=== PATIENT | male | born 1935 | race Caucasian/White ===

== ENCOUNTER 2017-06-10 14:38 | Outpatient (CLI) | payer MEDICARE ==
[2017-06-10 15:55] LABS: Mean Corpuscular HGB CONC 33.7 g/dL (32.0-36.0); Mean Corpuscular Hemoglobin 31.7 pg (27.0-31.0); Mean Corpuscular Volume 94.3 fl (80.0-94.0); Platelet Count 261 thou/uL (130-400); RBC Distribution Width 11.3 % (11.5-14.5); Red Blood Cell (RBC) Count 4.11 mill/uL (4.70-6.10); White Blood Cell (WBC) Count 7.9 thou/uL (4.8-10.8)
[2017-06-10 16:22] LABS: Anion Gap 12 mmol/L (10-20); BUN (Urea Nitrogen) 35 mg/dL (8.4-25.7); Calc. Creatinine Clearance 0 mL/min (70-130); Calcium 10.4 mg/dL (7.8-10.44); Carbon Dioxide 26 mmol/L (23-31); Chloride 103 mmol/L (98-107); Estimated GFR-MDRD 55; Glucose 96 mg/dL (83-110); Potassium 4.1 mmol/L (3.5-5.1); Sodium 137 mmol/L (136-145)
== END 2017-06-10 14:39 | disposition home or self-care (01) ==
LOC: LABBT 14:38
PROVIDERS: ATTEND Internal Medicine Cardiovascular Disease
DX: Z01.812 Encounter for preprocedural laboratory examination (principal); I20.0 Unstable angina
CPT/HCPCS: 80048; 85027

== ENCOUNTER 2017-06-12 06:58 | Inpatient (IN) | payer MEDICARE ==
[2017-06-12] MEDS ORDERED: Iopamidol 370 76% 100 ML VIAL ONE (06:59)
[2017-06-12] MEDS ORDERED: Lidocaine 1% (PF) 30 ML VIAL ONE (07:17)
[2017-06-12] MEDS ORDERED: Diazepam 5 MG TAB ONE (07:40)
[2017-06-12 07:43] LABS: Prothrombin Time 13.6 SEC (12.0-14.7)
[2017-06-12] MEDS ORDERED: Fentanyl 100 MCG/2 ML VIAL ONE (08:26)
[2017-06-12] MEDS ORDERED: Midazolam HCl 2 mg/2 ml Vial ONE ×3 (08:26→11:15)
[2017-06-12] MEDS ORDERED: Protamine Sulfate 250 MG/25 ML VIAL ONE (08:32)
[2017-06-12] MEDS ORDERED: Calcium Chloride 1 GM/10 ML Abboject SYRINGE ONE (08:32)
[2017-06-12] MEDS ORDERED: Sodium Bicarb 50 MEQ/50 ML VIAL ONE (08:32)
[2017-06-12] MEDS ORDERED: Papaverine 60 MG/2 ML VIAL ONE (08:32)
[2017-06-12] MEDS ORDERED: Cardioplegic Soln 1,000 ML BAG ONE (08:32)
[2017-06-12] MEDS ORDERED: Thrombin 5000 UNITS/5 ML VIAL ONE (08:32)
[2017-06-12] MEDS ORDERED: Heparin 30,000 units/30 ml VIAL ONE (08:32)
[2017-06-12] MEDS ORDERED: Aminocaproic Acid 5 GM/20 ML VIAL ONE (08:32)
[2017-06-12] MEDS ORDERED: PHENYLEPHRINE-NS 100 MCG/ML 10 ML SYRINGE ONE ×2 (08:32→14:58)
[2017-06-12] MEDS ORDERED: PROPOFOL 200 MG/20 ML VIAL ONE (08:32)
[2017-06-12] MEDS ORDERED: Lidocaine 1% PF 5 ML VIAL ONE (08:32)
[2017-06-12] MEDS ORDERED: Metoprolol Tartrate 5 MG/5 ML VIAL ONE (08:52)
[2017-06-12] MEDS ORDERED: Albumin 5% 500 ML ONE (09:06)
[2017-06-12] MEDS ORDERED: Heparin 10,000 UNITS/1 ML VIAL 30,000 UNITS, Admixture Fee 1 EACH in Sodium Chloride 0.... IVPB SCH (09:15)
[2017-06-12 09:49] LABS: #Eosinphils 0.1 thou/uL (0.0-0.7); #Lymphocytes 1.5 thou/uL (1.20-3.40); #Monocytes 0.4 thou/uL (0.11-0.59); #Neutrophils 4.7 thou/uL (1.40-6.50); %Basophils 0.6 % (0.0-1.0); %Eosinophils 0.8 % (0.0-10.0); %Lymphocytes 22.4 % (21.0-51.0); %Monocytes 6.3 % (0.0-10.0); %Neutrophils 69.8 % (42.0-75.0); Mean Corpuscular HGB CONC 34.5 g/dL (32.0-36.0); Mean Corpuscular Hemoglobin 32.2 pg (27.0-31.0); Mean Corpuscular Volume 93.4 fl (80.0-94.0); Mean Platelet Volume 6.5 fL (7.4-10.4); Platelet Count 228 thou/uL (130-400); RBC Distribution Width 11.2 % (11.5-14.5); Red Blood Cell (RBC) Count 3.73 mill/uL (4.70-6.10); White Blood Cell (WBC) Count 6.7 thou/uL (4.8-10.8)
--- NOTE | 2017-06-12 09:56 | RAD ---
PORTABLE SUPINE FRONTAL CHEST RADIOGRAPH: Date: 06-12-17 Comparison: None available. History: Evaluate chest prior to CABG. FINDINGS: Supine imaging limits assessment for pneumothorax and pleural fluid. There is mild diffuse increased linear interstitial density. Heart and mediastinal contours are unremarkable. There are atherosclerot ic calcification in the aortic arch. No lobar consolidation or alveolar edema. IMPRESSION: No acute findings. POS: BERNIE
[2017-06-12] MEDS ORDERED: CEFAZOLIN/Water 2 GM/20 ML SYRINGE ONE (10:59)
[2017-06-12] MEDS ORDERED: Fentanyl 250 MCG/5 ML VIAL ONE ×2 (11:11→12:08)
[2017-06-12] MEDS ORDERED: Phenylephrine HCL 10 MG/ML VIAL ONE (11:12)
[2017-06-12] MEDS ORDERED: Insulin Regular 300 UNITS/3 ML VIAL ONE (11:13)
[2017-06-12] MEDS ORDERED: Dexmedetomidine 200 MCG/2 ML VIAL ONE (11:16)
[2017-06-12] MEDS ORDERED: Protamine Sulfate 50 MG/5 ML VIAL ONE (14:17)
[2017-06-12] MEDS ORDERED: Mag-Al 1200 mg/1200 mg/30 ML UDCUP PO PRN (14:41)
[2017-06-12] MEDS ORDERED: Guaifenesin DM 100-10/5 ML UDCUP PO PRN (14:41)
[2017-06-12] MEDS ORDERED: Acetaminophen 325 MG TAB PO PRN (14:41)
[2017-06-12] MEDS ORDERED: Hetastarch 6% 500 ML 500 ML IVPB PRN (14:41)
[2017-06-12] MEDS ORDERED: DOPamine 400 MG/D5W 250 ML 250 ML IVPB PRN (14:41)
[2017-06-12] MEDS ORDERED: Nitroglycerin 50 MG/250 ML BOT 250 ML IVPB PRN (14:41)
[2017-06-12] MEDS ORDERED: Bisacodyl 10 MG SUPP PR PRN (14:41)
[2017-06-12] MEDS ORDERED: hydrALAZINE 20 MG/ML VIAL SLOW IVP PRN (14:41)
[2017-06-12] MEDS ORDERED: Potassium Chloride 20 MEQ/100 ML PREMIX BAG IVPB PRN (14:41)
[2017-06-12] MEDS ORDERED: Ondansetron HCl/PF 4 MG/2 ML Vial IVP PRN (14:41)
[2017-06-12] MEDS ORDERED: Promethazine HCl 25 MG/ML VIAL IM PRN (14:41)
[2017-06-12] MEDS ORDERED: Fentanyl 100 MCG/2 ML VIAL SLOW IVP PRN ×2 (14:41)
[2017-06-12] MEDS ORDERED: Bisacodyl 5 MG TAB PO PRN (14:41)
[2017-06-12] MEDS ORDERED: Post-Op Insulin Drip Protocol IVPB ONE (14:41)
[2017-06-12] MEDS ORDERED: Phenylephrine 10 MG/NS 250 ML 250 ML IVPB PRN (14:41)
[2017-06-12] MEDS ORDERED: Sodium Chloride 0.9% 1,000 ML IV SCH (14:45)
[2017-06-12] MEDS ORDERED: Dextrose 5% in Water 1,000 ML IV PRN (15:02)
[2017-06-12] MEDS ORDERED: Dextrose 50% Abboject 50 ML SYRINGE SLOW IVP PRN (15:02)
[2017-06-12] MEDS ORDERED: Insulin Regular 300 UNITS/3 ML VIAL SC PRN (15:02)
[2017-06-12 15:38] LABS: #Basophils 0.1 thou/uL (0.0-0.2); #Eosinphils 0.1 thou/uL (0.0-0.7); #Lymphocytes 1.7 thou/uL (1.20-3.40); #Monocytes 0.7 thou/uL (0.11-0.59); #Neutrophils 9.6 thou/uL (1.40-6.50); %Basophils 0.5 % (0.0-1.0); %Eosinophils 0.9 % (0.0-10.0); %Lymphocytes 14.2 % (21.0-51.0); %Monocytes 5.6 % (0.0-10.0); %Neutrophils 78.8 % (42.0-75.0); Hemoglobin 10.5 g/dL (14.0-18.0); Mean Corpuscular HGB CONC 34.6 g/dL (32.0-36.0); Mean Corpuscular Hemoglobin 32.8 pg (27.0-31.0); Mean Corpuscular Volume 94.9 fl (80.0-94.0); Mean Platelet Volume 6.7 fL (7.4-10.4); Platelet Count 167 thou/uL (130-400); RBC Distribution Width 11.2 % (11.5-14.5); Red Blood Cell (RBC) Count 3.19 mill/uL (4.70-6.10); White Blood Cell (WBC) Count 12.2 thou/uL (4.8-10.8)
[2017-06-12 15:44] LABS: Base Excess (BEa) -3.1 mEq/L (0 (+/-) 2.5); O2 Tension (PaO2) 214.9 mmHg (80.0-100.0); pH, Arterial 7.36 (7.35-7.45)
[2017-06-12 15:45] LABS: Calcium, Ionized 1.2 mmol/L (1.12-1.30); Hematocrit-ABG 29.5 % (42.0-52.0); Hemoglobin (Hb) 10.4 g/dL (14.0-18.0); Puncture Site ALINE
[2017-06-12] MEDS ORDERED: Magnesium Sulfate 5 GM in Sodium Chloride 0.9% 1,000 ML IV SCH (15:45)
[2017-06-12 15:48] LABS: INR-International Normal Ratio 1.4; PTT 30.9 SEC (22.9-36.1); Prothrombin Time 17.4 SEC (12.0-14.7)
--- NOTE | 2017-06-12 15:52 | RAD ---
FRONTAL VIEW CHEST: 06/12/17 COMPARISON: Earlier same day. INDICATION: Postop patient. Followup. FINDINGS: There is evidence of interval sternotomy. There is an endotracheal tube with tip terminating at the t horacic inlet. Right sided subclavian venous catheter present with tip overlying the right atrial reg ion. There is catheter tubing overlying the mediastinum and left upper chest. There is a subtle linear density at the left apex which may be related to a pleural line from a mild left apical pneumothorax which is not excluded on the basis on this exam. There is interstitial promi nence of each lung which may represent edema. There is accentuation of the cardiomediastinal silhouet te by portable technique. IMPRESSION: Subtle linear lucency at the left apex for which a small left apical pneumothorax is not excluded. Th is is a new finding from the prior exam. Recommend continued radiographic followup. Telephone call of findings placed to patient's physician, Casey Foreman at time of interpretation, 1520 hours, 06/12/17. Code CR POS: JONAH
[2017-06-12 16:03] LABS: Anion Gap 7 mmol/L (10-20); BUN (Urea Nitrogen) 28 mg/dL (8.4-25.7); Calc. Creatinine Clearance 60 mL/min (70-130); Carbon Dioxide 23 mmol/L (23-31); Chloride 112 mmol/L (98-107); Estimated GFR-MDRD 76; Glucose 110 mg/dL (83-110); Potassium 3.9 mmol/L (3.5-5.1); Sodium 138 mmol/L (136-145)
[2017-06-12] MEDS: Ketorolac Tromethamine 30 MG/ML VIAL IVP SCH ×2 (17:14→23:23)
[2017-06-12 19:06] LABS: ALV-art Gradient 75.325 (0-20); Actual Bicarbonate (HCO3a) 16.4 mEq/L (22-26); Base Excess (BEa) -8.8 mEq/L (0 (+/-) 2.5); CO2 Tension 33.1 mmHg (35.0-45.0); Calcium, Ionized 1.2 mmol/L (1.12-1.30); Hematocrit-ABG 30.3 % (42.0-52.0); Hemoglobin (Hb) 10.3 g/dL (14.0-18.0); O2 Tension (PaO2) 168.5 mmHg (80.0-100.0); Puncture Site ALINE; pH, Arterial 7.31 (7.35-7.45)
--- NOTE | 2017-06-12 19:15 | OP ---
PREOPERATIVE DIAGNOSIS: Coronary artery disease. PROCEDURE: Coronary bypass graft x4, good quality PROCTOR to a 2 mm LAD, good quality saphenous vein to a 2 mm ramus, small saphenous vein as a sequential graft to a 1.25 mm distal OM and 1.25 mm PDA. SURGEON: Casey Foreman M.D. GRIZZLY WORKER: Dr. Love. TRANSFUSION: None. PROCEDURE IN DETAIL: After adequate anesthesia had been obtained, the patient was prepped and draped and Dr. Love did an endovascular vein harvest of the left greater saphenous vein while I performed a median sternotomy, harvesting the left internal mammary artery. The patient was heparinized, the m ammary divided distally and passed posterior to the thymus gland. The patient had a long aorta and i t was cannulated as was the right atrial appendage and cardiopulmonary bypass was instituted. After this had been done, vessels were inspected for grafting, the aorta was cross-clamped and a liter of d [place] cardioplegic solution was given through the aortic root. The ramus graft was initially perfo rmed distally following which the distal OM was opened and a cydl-vm-bizg vein anastomosis completed here and then gentle curve left in the vein and PDA anastomosis was performed distally. Following th is, the LAD PROCTOR graft was completed. The crossclamp was then removed and the partial occluding clam p placed and 2 proximal anastomoses performed on the aortic root and marked with rings. Following co mpletion of this, the patient was weaned from cardiopulmonary bypass, decannulated with aortic cannul ation site being secured with a 4-0 Prolene suture. Protamine was given systemically and after obtai syd[place] good hemostasis, the sternum was reapproximated over a mediastinal and left pleural drain using #7 interrupted wire with vancomycin paste on the sternal edges, platelet-enriched blood, and platelet -poor plasma. Subcutaneous tissue and skin were closed in layers.
[2017-06-12] MEDS: CEFAZOLIN/Water 2 GM/20 ML SYRINGE SLOW IVP SCH (19:45)
[2017-06-12] MEDS: Famotidine/PF 20 mg/2ml Vial SLOW IVP SCH (19:45)
[2017-06-12 20:51] LABS: Hemoglobin 10.2 g/dL (14.0-18.0)
[2017-06-12 21:03] LABS: Potassium 4.2 mmol/L (3.5-5.1)
[2017-06-13] MEDS: HYDROcodone/Acetaminophen 5/325 mg Tablet PO PRN ×4 (02:19→21:01)
[2017-06-13] MEDS: CEFAZOLIN/Water 2 GM/20 ML SYRINGE SLOW IVP SCH ×2 (04:31→13:35)
[2017-06-13 04:47] LABS: #Monocytes 0.6 thou/uL (0.11-0.59); #Neutrophils 7.5 thou/uL (1.40-6.50); %Eosinophils 0.1 % (0.0-10.0); %Lymphocytes 11.1 % (21.0-51.0); %Monocytes 6.8 % (0.0-10.0); Hemoglobin 9.4 g/dL (14.0-18.0); Mean Corpuscular HGB CONC 33.3 g/dL (32.0-36.0); Mean Corpuscular Hemoglobin 32.6 pg (27.0-31.0); Mean Corpuscular Volume 97.9 fl (80.0-94.0); Mean Platelet Volume 7.3 fL (7.4-10.4); Platelet Count 167 thou/uL (130-400); RBC Distribution Width 11.2 % (11.5-14.5); Red Blood Cell (RBC) Count 2.88 mill/uL (4.70-6.10); White Blood Cell (WBC) Count 9.1 thou/uL (4.8-10.8)
[2017-06-13 05:11] LABS: Anion Gap 9 mmol/L (10-20); BUN (Urea Nitrogen) 29 mg/dL (8.4-25.7); Calc. Creatinine Clearance 58 mL/min (70-130); Calcium 8.2 mg/dL (7.8-10.44); Carbon Dioxide 23 mmol/L (23-31); Chloride 112 mmol/L (98-107); Estimated GFR-MDRD 74; Glucose 97 mg/dL (83-110); Potassium 4.2 mmol/L (3.5-5.1); Sodium 140 mmol/L (136-145)
[2017-06-13] MEDS: Ketorolac Tromethamine 30 MG/ML VIAL IVP SCH ×3 (06:15→17:59)
[2017-06-13] MEDS: Metoprolol Tartrate 25 MG TAB PO SCH ×2 (09:15→21:00)
[2017-06-13] MEDS: Aspirin 325 MG TAB PO SCH (09:15)
[2017-06-13] MEDS: Famotidine/PF 20 mg/2ml Vial SLOW IVP SCH (09:17)
--- NOTE | 2017-06-13 10:11 | RAD ---
RADIOGRAPH CHEST 1 VIEW: Date: 06/13/17. Time: 5:07 a.m. HISTORY: An 81-year-old male status post open heart surgery. COMPARISON: 06/12/17 at 3:20 p.m. FINDINGS: Endotracheal tube has been removed. Midline chest tube or drainage catheter overlying the left upper lung zone, remains. Right subclavian central vascular catheter remains. The lungs are essentially clear. No cardiomegaly. No pneumothorax. Lateral costophrenic angles are sharp. IMPRESSION: 1. Status post extubation. 2. Other life support lines remain. 3. No acute cardiopulmonary findings. JANIE [] POS: JONAH
[2017-06-13] MEDS ORDERED: INSULIN DETEMIR SC SCH (14:30)
[2017-06-13] MEDS: Famotidine 20 MG TAB PO SCH (20:59)
[2017-06-13] MEDS ORDERED: Atorvastatin Calcium 10 MG TAB PO SCH (21:00)
[2017-06-14] MEDS: Ketorolac Tromethamine 30 MG/ML VIAL IVP SCH ×2 (00:05→06:23)
[2017-06-14 04:33] LABS: #Eosinphils 0.1 thou/uL (0.0-0.7); #Lymphocytes 1.4 thou/uL (1.20-3.40); #Monocytes 0.7 thou/uL (0.11-0.59); #Neutrophils 7.6 thou/uL (1.40-6.50); %Basophils 0.2 % (0.0-1.0); %Eosinophils 0.7 % (0.0-10.0); %Lymphocytes 14.2 % (21.0-51.0); %Monocytes 7.2 % (0.0-10.0); %Neutrophils 77.7 % (42.0-75.0); Hemoglobin 8.9 g/dL (14.0-18.0); Mean Corpuscular HGB CONC 34.3 g/dL (32.0-36.0); Mean Corpuscular Hemoglobin 32.8 pg (27.0-31.0); Mean Corpuscular Volume 95.7 fl (80.0-94.0); Mean Platelet Volume 7.1 fL (7.4-10.4); Platelet Count 148 thou/uL (130-400); RBC Distribution Width 11.3 % (11.5-14.5); White Blood Cell (WBC) Count 9.8 thou/uL (4.8-10.8)
[2017-06-14 04:47] LABS: Anion Gap 7 mmol/L (10-20); BUN (Urea Nitrogen) 35 mg/dL (8.4-25.7); Calc. Creatinine Clearance 54 mL/min (70-130); Calcium 8.6 mg/dL (7.8-10.44); Carbon Dioxide 24 mmol/L (23-31); Chloride 109 mmol/L (98-107); Estimated GFR-MDRD 68; Glucose 100 mg/dL (83-110); Potassium 4.1 mmol/L (3.5-5.1); Sodium 136 mmol/L (136-145)
[2017-06-14] MEDS: HYDROcodone/Acetaminophen 5/325 mg Tablet PO PRN ×3 (05:12→21:07)
[2017-06-14 05:47] VITALS: BMI 22.4
[2017-06-14] MEDS: Aspirin 325 MG TAB PO SCH (08:00)
[2017-06-14] MEDS: Famotidine 20 MG TAB PO SCH ×2 (08:01→21:08)
[2017-06-14] MEDS: Metoprolol Tartrate 25 MG TAB PO SCH (08:01)
--- NOTE | 2017-06-14 08:29 | RAD ---
RADIOGRAPH CHEST 1 VIEW: Date: 06/14/17. Time: 5:33 a.m. HISTORY: An 81-year-old male status post open heart surgery. COMPARISON: 06/13/17, 5:07 a.m. FINDINGS: Minimal increase in mild streaky pulmonary densities at the left lower lobe lung base. The rest of t he lungs remain clear. No other interval change. No change in life support lines. IMPRESSION: 1. Minimal worsening of mild airspace density in left lower lobe. 2. The rest of the lungs remain clear. 3. No change in life support lines. JANIE [] POS: JONAH
[2017-06-14] MEDS ORDERED: Ondansetron HCl/PF 4 MG/2 ML Vial IVP PRN (09:46)
[2017-06-14] MEDS ORDERED: Guaifenesin DM 100-10/5 ML UDCUP PO PRN (09:46)
[2017-06-14] MEDS ORDERED: Bisacodyl 10 MG SUPP PR PRN (09:46)
[2017-06-14] MEDS ORDERED: Milk Of Magnesia 30 ML UDCUP PO PRN (09:46)
[2017-06-14] MEDS ORDERED: Mineral Oil ENEMA PR PRN (09:46)
[2017-06-14] MEDS ORDERED: Mag-Al 1200 mg/1200 mg/30 ML UDCUP PO PRN (09:46)
[2017-06-14] MEDS ORDERED: Acetaminophen 325 MG TAB PO PRN (09:46)
--- NOTE | 2017-06-14 15:31 | EKG ---
Test Reason : S/P CABG Blood Pressure : / mmHG Vent. Rate : 062 BPM Atrial Rate : 062 BPM P-R Int : 188 ms QRS Dur : 090 ms QT Int : 454 ms P-R-T Axes : 071 068 074 degrees QTc Int : 460 ms Normal sinus rhythm Normal ECG No previous ECGs available Confirmed by DR. Grey CASTELLAONS ([id number]) on 06/14/2017 3:30:59 PM Referred By: DAYANA Confirmed By:DR. Grey CASTELLANOS
[2017-06-15] MEDS: HYDROcodone/Acetaminophen 5/325 mg Tablet PO PRN (05:40)
[2017-06-15] MEDS: Bisacodyl 5 MG TAB PO PRN ×2 (05:44→21:10)
[2017-06-15] MEDS: Aspirin 325 mg Enteric Coated Tablet PO SCH (07:28)
[2017-06-15] MEDS: Metoprolol Tartrate 25 MG TAB PO SCH ×2 (07:28→21:00)
[2017-06-15] MEDS ORDERED: Furosemide 40 MG TAB PO SCH (07:30)
[2017-06-15] MEDS ORDERED: Potassium Chloride 10 MEQ TAB PO SCH (08:00)
[2017-06-15] MEDS ORDERED: Amiodarone 200 MG TAB PO SCH ×2 (09:15→09:30)
--- NOTE | 2017-06-15 09:31 | PRG ---
DATE OF SERVICE: 06/15/2017 SUBJECTIVE: Mr. Villalpando is having recurrent atrial fibrillation with a very rapid rate. The rate is so metimes up to 180-200 beats per minute. He feel his heart racing during these episodes. PHYSICAL EXAMINATION: VITAL SIGNS: His blood pressure has been variable, 112/55. Most recently 195/100, pulse down to the 80s. LUNGS: Clear. CARDIAC: Normal S1, S2. ABDOMEN: Soft, nontender. EXTREMITIES: There is no edema. ASSESSMENT: 1. Status post bypass surgery. 2. Atrial fibrillation with extremely rapid ventricular response. 3. Hypertension. 4. Diabetes. PLAN: 1. ELIZABETH inhibitor. 2. Beta trinh. 3. In view of the very rapid rate we will use amiodarone. This should reduce the risk of recurrent atrial fibrillation, also, will control the rate better if he does go back into this rhythm. We will give him amiodarone, will continue this only for 1 and at most 2 months.
[2017-06-15] MEDS: Famotidine 20 MG TAB PO SCH ×2 (09:48→21:00)
--- NOTE | 2017-06-15 12:19 | PQF ---
GABRIELLA AMBROSE KENNON D MD [id number] [facility]-A12 [id number] CLINICAL DOCUMENTATION IMPROVEMENT CLARIFICATION FORM: ICD-10 Updated PLEASE DO AN ADDENDUM TO THE PROGRESS NOTE WITH ANY DOCUMENTATION UPDATES OR ADDITIONS AND CARRY THROUGH TO DC SUMMARY. THANK YOU. DATE: 06-15-17 ATTN: DR. MICHELLE Please exercise your independent, professional judgment in responding to the clarification form. Clinical indicators are provided on the bottom of this form for your review Please check appropriate box(s): [ ] Paroxysmal Atrial Fibrillation [ ] Persistent Atrial Fibrillation [ ] Chronic Atrial Fibrillation (includes permanent Atrial Fibrillation) [ ] Post-Operative Complication - Atrial Fibrillation [ ] Paroxysmal Atrial Fibrillation [ ] Persistent Atrial Fibrillation [ ] Other Diagnosis [ ] Unable to Determine In addition, please specify: Present on Admission (POA): [ ] Yes [ ] No [ ] Unable to determine For continuity of documentation, please document condition throughout progress notes and discharge summary. Thank You. CLINICAL INDICATORS - SIGNS / SYMPTOMS / LABS RECURRENT ATRIAL FIBRILLATION ATRIAL FIBRILLATION W/ EXTREMELY RAPID VENTRICULAR RESPONSE - 3-[address] MICHELLE RISKS FACTORS H&P: HTN 3-2 OP NOTE: CABG X 3 TREATMENTS: MAR: LOPRESSOR 3-4 / 3-5 ACCUPRIL 3-4 / 3-5 AMIODARONE 3-5 ECOTRIN 3-5 THANK YOU, LAUREN (This form is maintained as a part of the permanent medical record) 2015 [employer] All Rights Reserved Lauren Cuello RN, [email or web address] [facility] CENTERArmando
[2017-06-15] MEDS: Amiodarone 200 MG TAB PO SCH ×2 (14:58→21:00)
[2017-06-15] MEDS: metFORMIN 500 MG TAB PO SCH (16:25)
[2017-06-16] MEDS: Metoprolol Tartrate 25 MG TAB PO SCH ×3 (08:21→20:52)
[2017-06-16] MEDS: Amiodarone 200 MG TAB PO SCH ×3 (08:22→20:43)
[2017-06-16] MEDS: metFORMIN 500 MG TAB PO SCH ×2 (08:22→16:44)
[2017-06-16] MEDS: Aspirin 325 mg Enteric Coated Tablet PO SCH (08:23)
[2017-06-16] MEDS: Famotidine 20 MG TAB PO SCH ×2 (08:23→20:44)
--- NOTE | 2017-06-16 14:02 | PRG ---
DATE OF SERVICE: 06/16/2017 SUBJECTIVE: Mr. Villalpando feels well, no chest pain or pressure, and no complaints. He is still having a rapid tachycardia with what looks like atrial fibrillation with a rapid rate. As late as 8 o'clock this morning, he had an episode that looked like his rate was about 170 beats a minute and this lasts for a few minutes at a time up to 5 minutes. OBJECTIVE: VITAL SIGNS: Blood pressure 147/65, pulse now 70. LUNGS: Clear. CARDIAC: Normal S1, normal S2. ASSESSMENT: 1. Status post bypass surgery. 2. Atrial arrhythmias. The rates are somewhat slower now that he has gotten some amiodarone. PLAN: 1. We will increase beta trinh. 2. Continue loading with amiodarone today to go home tomorrow with the amiodarone 200 mg twice a day for one month only. ADDENDUM: Mr. Villalpando does have atrial fibrillation, it is paroxysmal. Postoperatively, it would not be expected to continue director long term care. I would not use anticoagulation in this gentleman. I do not think the risk-benefit ratio favors anticoagulation. Certainly anticoagulation in the postoperative period increases bleeding risks.
--- NOTE | 2017-06-17 06:43 | DIS ---
HOSPITAL COURSE: The patient was taken to the operating room on 06/12/2017 following cardiac cathete rization where he underwent bypass grafting to the LAD, ramus, distal OM and right PDA. Postoperativ e course was notable only for transient episodes of rapid atrial fibrillation. These were short-live d and he was begun on amiodarone and metoprolol. He will be discharged home with 1 episode of atrial fibrillation in the last 48 hours, lasting only a few minutes. DISCHARGE MEDICATIONS: Will include quinapril 10 b.i.d., metoprolol 12.5 p.o. b.i.d., amiodarone 200 p.o. b.i.d. He is to resume his over the counter vitamins, aspirin, metformin. His quinapril has b een decreased from 40 mg a day to 20 mg a day. Discharge and follow up instructions were given and discharge weight was just under 150 pounds.
[2017-06-17 07:46] VITALS: TEMP 98.3
[2017-06-17] MEDS: Metoprolol Tartrate 25 MG TAB PO SCH (08:57)
[2017-06-17] MEDS: Amiodarone 200 MG TAB PO SCH (08:57)
[2017-06-17] MEDS: metFORMIN 500 MG TAB PO SCH (08:57)
[2017-06-17] MEDS: Aspirin 325 mg Enteric Coated Tablet PO SCH (08:58)
[2017-06-17] MEDS: Famotidine 20 MG TAB PO SCH (08:58)
--- NOTE | 2017-06-17 09:51 | PRG ---
DATE OF SERVICE: 06/17/2017 Mr. Villalpando is doing very well. He had no further atrial fibrillation since yesterday. He has only had a few minutes at a time prior to that. He is up and around, looks great. PHYSICAL EXAMINATION: VITAL SIGNS: Blood pressure 159/71, pulse in the 60s, it is sinus. LUNGS: Clear. CARDIAC: Normal S1 and S2. ASSESSMENT: 1. Status post bypass surgery, doing great. 2. Paroxysmal atrial fibrillation postoperatively only for a few minutes at a time, initially with a very rapid rate. 3. Hypertension. PLAN: 1. He will go home on amiodarone 200 mg twice a day for 1 month only. At that time, would consider stopping the amiodarone and increasing the beta trinh dose. 2. At this point, I do think anticoagulation risk benefit ratio would favor anticoagulation. There is a substantial risk of bleeding in this early postoperative period and a stroke risk would be expec ursula to be low as it is paroxysmal only for a few minutes at a time, it is postoperative and decreasin g. He will go home on aspirin. The other medicines that he is on are metoprolol 25 mg twice a day, quinapril or Accupril 10 mg twice a day. Dose could be increased. Will need to go back on statin maki pettit, previously on Zetia. I believe he was actually statin intolerant.
[2017-06-17 10:23] VITALS: BP 217/93
[2017-07-01 11:44] LABS: Actual Bicarbonate (HCO3a) 22.4 mEq/L (22-26); Base Excess (BEa) -0.8 mEq/L (0 (+/-) 2.5); CO2 Tension 31.7 mmHg (35.0-45.0); O2 Tension (PaO2) 370.1 mmHg (80.0-100.0); pH, Arterial 7.47 (7.35-7.45)
[2017-07-01 11:45] LABS: Analyzer IN Cardio OR; Calcium, Ionized 1.2 mmol/L (1.12-1.30); Hemoglobin (Hb) 10.9 g/dL (14.0-18.0); Puncture Site ALINE
[2017-07-01 11:45] LABS: pH, Arterial 7.36 (7.35-7.45)
[2017-07-01 11:46] LABS: Actual Bicarbonate (HCO3a) 22.3 mEq/L (22-26); Analyzer IN Cardio OR; CO2 Tension 40.7 mmHg (35.0-45.0); Calcium, Ionized 1.2 mmol/L (1.12-1.30); Hematocrit-ABG 28.3 % (42.0-52.0); Hemoglobin (Hb) 10.1 g/dL (14.0-18.0); O2 Tension (PaO2) 247.7 mmHg (80.0-100.0); Puncture Site ALINE
[2017-07-01 11:47] LABS: Actual Bicarbonate (HCO3a) 23.3 mEq/L (22-26); Base Excess (BEa) -2.2 mEq/L (0 (+/-) 2.5); CO2 Tension 43.4 mmHg (35.0-45.0); Hematocrit-ABG 22.6 % (42.0-52.0); Hemoglobin (Hb) 7.7 g/dL (14.0-18.0); O2 Tension (PaO2) 293.9 mmHg (80.0-100.0); pH, Arterial 7.35 (7.35-7.45)
[2017-07-01 11:48] LABS: Analyzer IN Cardio OR; Calcium, Ionized 1.1 mmol/L (1.12-1.30); Puncture Site ALINE
[2017-07-01 11:48] LABS: Actual Bicarbonate (HCO3v) 25 mEq/L (22-26); Analyzer IN Cardio OR; Base Excess -1.3 mEq/L (0 (+/- 2.5)); Hematocrit-VBG 22.4 % (37-51); Hemoglobin (Hb) 7.9 g/dL (12.6-17.4); pH (venous) 7.33 (7.35-7.45)
[2017-07-01 11:49] LABS: Chloride (ABG LAB) 103 mmol/L (98-106); Potassium - ABG Lab 4.5 mmol/L (3.70-5.30); Sodium 138.6 mmol/L (133-146)
[2017-07-01 11:49] LABS: Base Excess (BEa) -1.7 mEq/L (0 (+/-) 2.5); CO2 Tension 45.4 mmHg (35.0-45.0); Hematocrit-ABG 23.3 % (42.0-52.0); Hemoglobin (Hb) 8.1 g/dL (14.0-18.0); O2 Tension (PaO2) 411.4 mmHg (80.0-100.0); pH, Arterial 7.34 (7.35-7.45)
[2017-07-01 11:50] LABS: Analyzer IN Cardio OR; Calcium, Ionized 1.1 mmol/L (1.12-1.30); Puncture Site ALINE
[2017-07-01 11:50] LABS: pH, Arterial 7.39 (7.35-7.45)
[2017-07-01 11:51] LABS: Actual Bicarbonate (HCO3a) 21.7 mEq/L (22-26); Analyzer IN Cardio OR; Base Excess (BEa) -2.8 mEq/L (0 (+/-) 2.5); CO2 Tension 36.6 mmHg (35.0-45.0); Calcium, Ionized 1.2 mmol/L (1.12-1.30); Hematocrit-ABG 26.5 % (42.0-52.0); Hemoglobin (Hb) 9.4 g/dL (14.0-18.0); O2 Tension (PaO2) 170.7 mmHg (80.0-100.0); Puncture Site ALINE
[2017-07-01 11:52] LABS: Actual Bicarbonate (HCO3a) 21.7 mEq/L (22-26); Analyzer IN Cardio OR; Base Excess (BEa) -2.8 mEq/L (0 (+/-) 2.5); CO2 Tension 36.6 mmHg (35.0-45.0); Calcium, Ionized 1.2 mmol/L (1.12-1.30); Hematocrit-ABG 26.5 % (42.0-52.0); Hemoglobin (Hb) 9.4 g/dL (14.0-18.0); O2 Tension (PaO2) 170.7 mmHg (80.0-100.0); Puncture Site ALINE; pH, Arterial 7.39 (7.35-7.45)
== END 2017-06-17 11:32 | disposition home or self-care (01) | DRG 234 ==
LOC: CCL 06:58 → CCU 09:00 → 2NO 06-14 11:15
PROVIDERS: ADMIT Thoracic Surgery (Cardiothoracic Vascular Surgery); ATTEND Thoracic Surgery (Cardiothoracic Vascular Surgery)
PROC: 021209W Bypass Coronary Artery, Three Arteries from Aorta with Autologous Venous Tissue, Open Approach (ICD-10-PCS; principal; 2017-06-12)
PROC: 4A023N7 Measurement of Cardiac Sampling and Pressure, Left Heart, Percutaneous Approach (ICD-10-PCS; 2017-06-12)
PROC: 02100Z9 Bypass Coronary Artery, One Artery from Left Internal Mammary, Open Approach (ICD-10-PCS; 2017-06-12)
PROC: 06BQ4ZZ Excision of Left Saphenous Vein, Percutaneous Endoscopic Approach (ICD-10-PCS; 2017-06-12)
PROC: 5A1221Z Performance of Cardiac Output, Continuous (ICD-10-PCS; 2017-06-12)
PROC: B2111ZZ Fluoroscopy of Multiple Coronary Arteries using Low Osmolar Contrast (ICD-10-PCS; 2017-06-12)
PROC: B2151ZZ Fluoroscopy of Left Heart using Low Osmolar Contrast (ICD-10-PCS; 2017-06-12)
DX: I25.110 Atherosclerotic heart disease of native coronary artery with unstable angina pectoris (principal); I48.0 Paroxysmal atrial fibrillation; E10.9 Type 1 diabetes mellitus without complications; I10 Essential (primary) hypertension; Z98.61 Coronary angioplasty status; Z79.4 Long term (current) use of insulin; Z79.82 Long term (current) use of aspirin; Z79.01 Long term (current) use of anticoagulants
CPT/HCPCS: 36416; 36430; 71045; 76942; 80048; 82805; 85025; 85027; 85610; 85730; 86850; 86900; 86901; 93005; 93010; 93458; 93798; 94002; 94150; 99152; 99153; C1769; J1644; J1815; J1885; J2001; J2250; J2370; J2440; J2704; J2720; J3010; J3370; J3475; J7050; P9016; P9045; S0017; S0028

== ENCOUNTER 2019-08-29 06:32 | Outpatient (CLI) | payer MEDICARE, OTHER ==
[2019-08-29 10:43] LABS: #Eosinphils 0.1 thou/uL (0.0-0.7); #Lymphocytes 1.4 thou/uL (1.20-3.40); #Monocytes 0.5 thou/uL (0.11-0.59); #Neutrophils 3.7 thou/uL (1.40-6.50); %Basophils 0.3 % (0.0-1.0); %Eosinophils 1.1 % (0.0-10.0); %Lymphocytes 24.9 % (21.0-51.0); %Monocytes 8.5 % (0.0-10.0); %Neutrophils 65.3 % (42.0-75.0); Hemoglobin 12.8 g/dL (14.0-18.0); Mean Corpuscular HGB CONC 33.1 g/dL (32.0-36.0); Mean Corpuscular Hemoglobin 31.9 pg (27.0-31.0); Mean Corpuscular Volume 96.3 fL (78.0-98.0); Mean Platelet Volume 7.2 fL (7.4-10.4); Platelet Count 204 thou/uL (130-400); RBC Distribution Width 11.1 % (11.5-14.5); Red Blood Cell (RBC) Count 4.02 mill/uL (4.70-6.10); White Blood Cell (WBC) Count 5.7 thou/uL (4.8-10.8)
[2019-08-29 11:13] LABS: ALT (SGPT) 15 U/L (8-55); AST (SGOT) 19 U/L (5-34); Albumin 4.3 g/dL (3.4-4.8); Alkaline Phosphatase 109 U/L (40-110); Anion Gap 13 mmol/L (10-20); BUN (Urea Nitrogen) 25 mg/dL (8.4-25.7); Bilirubin, Total 0.5 mg/dL (0.2-1.2); Calc. Creatinine Clearance 0 mL/min (70-130); Calcium 10.3 mg/dL (7.8-10.44); Carbon Dioxide 27 mmol/L (23-31); Chloride 104 mmol/L (98-107); Estimated GFR-MDRD 50; Globulin 2.7 g/dL (2.4-3.5); Glucose 199 mg/dL (83-110); Potassium 4.6 mmol/L (3.5-5.1); Sodium 139 mmol/L (136-145)
[2019-08-29 17:38] LABS: SARS-CoV-2 MS2 Positive; SARS-CoV-2 N Gene Negative; SARS-CoV-2 S Gene Negative; SARS-CoV-2 orf1ab Negative
== END 2019-08-29 06:33 | disposition home or self-care (01) ==
LOC: LABBT 06:32
PROVIDERS: ATTEND Internal Medicine Cardiovascular Disease
DX: Z01.812 Encounter for preprocedural laboratory examination (principal); Z11.59 Encounter for screening for other viral diseases; I25.119 Atherosclerotic heart disease of native coronary artery with unspecified angina pectoris
CPT/HCPCS: 80053; 85025; U0003; 87635

== ENCOUNTER 2019-09-01 05:56 | Day surgery (SDC) | payer MEDICARE ==
[2019-08-29 09:41] VITALS: BMI 23.6
[2019-09-01] MEDS ORDERED: Fentanyl 100 MCG/2 ML VIAL ONE (07:26)
[2019-09-01] MEDS ORDERED: Iopamidol 370 76% 100 ML VIAL ONE (09:33)
--- NOTE | 2019-09-02 01:02 | DIS ---
DATE OF ADMISSION: 09/01/2019 DATE OF DISCHARGE: 09/01/2019 The patient underwent cardiac catheterization today. He has a widely patent internal mammary graft to the LAD, widely patent vein graft to the ramus. There appears to be a sequential graft to the distal circumflex with that I do not think is open, but that one is a very small artery. He has a patent graft to the posterior descending artery. The zuni right coronary has 30% to 40% plaques, ejection fraction of 60%. The patient's angina has improved with nitrates. We will increase isosorbide to 60 mg a day. Continue other medicines unchanged. See us in about a month. Medical therapy is the appropriate treatment. Job ID: [id number]
== END 2019-09-01 12:32 | disposition home or self-care (01) ==
LOC: CCL 05:56
PROVIDERS: ATTEND Internal Medicine Cardiovascular Disease
PROC: 4A023N7 Measurement of Cardiac Sampling and Pressure, Left Heart, Percutaneous Approach (ICD-10-PCS; principal; 2019-09-01)
PROC: B2111ZZ Fluoroscopy of Multiple Coronary Arteries using Low Osmolar Contrast (ICD-10-PCS; 2019-09-01)
PROC: B2181ZZ Fluoroscopy of Left Internal Mammary Bypass Graft using Low Osmolar Contrast (ICD-10-PCS; 2019-09-01)
PROC: B2131ZZ Fluoroscopy of Multiple Coronary Artery Bypass Grafts using Low Osmolar Contrast (ICD-10-PCS; 2019-09-01)
DX: I25.118 Atherosclerotic heart disease of native coronary artery with other forms of angina pectoris (principal); I10 Essential (primary) hypertension; E78.00 Pure hypercholesterolemia, unspecified; I48.91 Unspecified atrial fibrillation; E10.9 Type 1 diabetes mellitus without complications; Z79.02 Long term (current) use of antithrombotics/antiplatelets; Z79.82 Long term (current) use of aspirin; Z79.84 Long term (current) use of oral hypoglycemic drugs; Z79.899 Other long term (current) drug therapy; Z95.1 Presence of aortocoronary bypass graft
CPT/HCPCS: 36416; 76942; 93459; C1769; J1644; J3010; Q9967

== ENCOUNTER 2021-07-19 09:26 | Outpatient (CLI) | payer MEDICARE | END 2021-07-19 09:27 | disposition home or self-care (01) | LOC: TBSIIMAG 09:26 | PROVIDERS: ATTEND Orthopaedic Surgery | DX: M48.062 Spinal stenosis, lumbar region with neurogenic claudication (principal); M47.816 Spondylosis without myelopathy or radiculopathy, lumbar region; M47.817 Spondylosis without myelopathy or radiculopathy, lumbosacral region; M47.815 Spondylosis without myelopathy or radiculopathy, thoracolumbar region | CPT/HCPCS: 72148 ==

== ENCOUNTER 2023-03-13 10:52 | Inpatient (IN) | payer MEDICARE ==
[2023-03-13 11:30] LABS: #Eosinphils 0.1 thou/uL (0.0-0.7); #Monocytes 0.5 thou/uL (0.11-0.59); #Neutrophils 5.6 thou/uL (1.40-6.50); %Basophils 0.4 % (0.0-1.0); %Eosinophils 1.1 % (0.0-10.0); %Monocytes 6.4 % (0.0-10.0); %Neutrophils 66.7 % (42.0-75.0); Hematocrit 34.2 % (42.0-52.0); Mean Corpuscular HGB CONC 32.2 g/dL (32.0-36.0); Mean Corpuscular Volume 99.4 fl (78.0-98.0); Mean Platelet Volume 9.3 fL (7.4-10.4); Platelet Count 242 10x3/uL (130-400); RBC Distribution Width 12.5 % (11.5-14.5); Red Blood Cell (RBC) Count 3.44 mill/uL (4.70-6.10); White Blood Cell (WBC) Count 8.4 10x3/uL (4.8-10.8)
[2023-03-13 11:52] LABS: ALT (SGPT) 26 U/L (8-55); AST (SGOT) 18 U/L (5-34); Albumin 3.9 g/dL (3.4-4.8); Alkaline Phosphatase 78 U/L (40-110); Anion Gap 13 mmol/L (10-20); BUN (Urea Nitrogen) 40 mg/dL (8.4-25.7); Bilirubin, Total 0.4 mg/dL (0.2-1.2); Calc. Creatinine Clearance 0 mL/min (70-130); Calcium 9.7 mg/dL (7.8-10.44); Carbon Dioxide 20 mmol/L (23-31); Chloride 108 mmol/L (98-107); Estimated GFR 32; Globulin 2.8 g/dL (2.4-3.5); Glucose 142 mg/dL (83-110); Lipase 31 U/L (8-78); Magnesium 2.5 mg/dL (1.6-2.6); Potassium 5.2 mmol/L (3.5-5.1); Protein, Total 6.7 g/dL (5.8-8.1); Sodium 136 mmol/L (136-145)
[2023-03-13 11:55] LABS: Troponin I 0.018 ng/mL (< 0.028)
[2023-03-13] MEDS ORDERED: Ondansetron PF 4 MG/2 ML Vial ONE (12:46)
[2023-03-13] MEDS ORDERED: Morphine 4 MG/ML VIAL ONE (12:46)
[2023-03-13 13:11] LABS: Bacteria/HPF None Seen HPF (None Seen); Bilirubin Negative (Negative); Blood, Urine Negative (Negative); CAUTI Indications for Culture Pelvic or flank pain; Clarity Clear (Clear); Glucose, Urine (Dipstick) Normal (Negative); Ketone, Urine Negative (Negative); Leukocyte Negative Leu/uL (Negative); Nitrite Negative (Negative); Protein, Urine (Dipstick) Negative (Neg-Trace); RBC/HPF 0-3 HPF (0-3); Specific Gravity, Urine 1.021 (1.002-1.036); Squamous Epithelial 0-3 HPF (0-3); Urobilinogen Normal mg/dL (Less than 2); WBC/HPF 0-3 HPF (0-3); pH, Urine 5.5 (5.0-9.0)
[2023-03-13 13:13] LABS: Urine Culture Reflex No No
[2023-03-13] MEDS ORDERED: Aspirin Chewable 81 MG TAB ONE (13:15)
[2023-03-13] MEDS ORDERED: Nitroglycerin 0.4 MG TAB (25 Tab Bottle) SL PRN (15:12)
[2023-03-13] MEDS ORDERED: Ondansetron PF 4 MG/2 ML Vial IVP PRN (15:12)
[2023-03-13] MEDS ORDERED: Acetaminophen 325 MG TAB PO PRN (15:12)
[2023-03-13] MEDS ORDERED: Ondansetron ODT 4 MG TAB PO PRN (15:12)
[2023-03-13] MEDS ORDERED: Dextrose 50% Abboject 50 ML SYRINGE SLOW IVP PRN (15:14)
[2023-03-13] MEDS ORDERED: HumaLOG 300 UNITS/3 ML VIAL SC PRN ×2 (15:14)
[2023-03-13] MEDS ORDERED: Glucagon 1 MG/ML KIT IM PRN (15:14)
[2023-03-13] MEDS ORDERED: Dextrose 5% in Water 1,000 ML IV PRN (15:14)
[2023-03-13] MEDS ORDERED: Sodium Chloride 0.9% 1,000 ML IV SCH (15:15)
[2023-03-13 15:28] LABS: Troponin I Less than 0.010 ng/mL (< 0.028)
[2023-03-13 17:50] VITALS: BMI 23.4
[2023-03-13 20:50] LABS: Troponin I Less than 0.010 ng/mL (< 0.028)
[2023-03-13] MEDS: Cyanocobalamin (Vitamin B-12) 1,000 MCG TAB PO SCH (21:09)
[2023-03-13] MEDS: Multivit, Therapeutic 1 TAB PO SCH (21:09)
[2023-03-13] MEDS: Folic Acid 1 MG TAB PO SCH (21:09)
[2023-03-14 05:31] LABS: Anion Gap 9 mmol/L (10-20); BUN (Urea Nitrogen) 31 mg/dL (8.4-25.7); Calc. Creatinine Clearance 33 mL/min (70-130); Calcium 9.3 mg/dL (7.8-10.44); Carbon Dioxide 20 mmol/L (23-31); Chloride 114 mmol/L (98-107); Estimated GFR 41; Glucose 122 mg/dL (83-110); Sodium 138 mmol/L (136-145)
[2023-03-14] MEDS: Rosuvastatin 5 MG TAB PO SCH (09:23)
[2023-03-14] MEDS: Levothyroxine Sodium 50 MCG TAB PO SCH (09:23)
[2023-03-14] MEDS: Aspirin Chewable 81 MG TAB PO SCH (09:23)
[2023-03-14] MEDS ORDERED: LevoFLOXacin 500 MG TAB PO SCH (14:45)
[2023-03-14] MEDS: Folic Acid 1 MG TAB PO SCH (20:36)
[2023-03-14] MEDS: Amlodipine 5 MG TAB PO SCH (20:36)
[2023-03-14] MEDS: Cyanocobalamin (Vitamin B-12) 1,000 MCG TAB PO SCH (20:36)
[2023-03-14] MEDS: Lisinopril 20 MG TAB PO SCH (20:37)
[2023-03-14] MEDS: Multivit, Therapeutic 1 TAB PO SCH (20:38)
[2023-03-15] MEDS: LevoFLOXacin 500 MG TAB PO SCH (06:37)
[2023-03-15] MEDS: Levothyroxine Sodium 50 MCG TAB PO SCH (06:38)
[2023-03-15] MEDS: Tamsulosin HCl 0.4 MG CAP PO SCH (10:21)
[2023-03-15] MEDS: Ascorbic Acid 500 mg Chewable Tablet PO SCH (10:21)
[2023-03-15] MEDS: Aspirin Chewable 81 MG TAB PO SCH (10:21)
[2023-03-15] MEDS: Amlodipine 5 MG TAB PO SCH ×2 (10:21→20:08)
[2023-03-15] MEDS: Ezetimibe 10 MG TAB PO SCH (10:21)
[2023-03-15] MEDS: Lisinopril 20 MG TAB PO SCH ×2 (10:21→20:08)
[2023-03-15] MEDS: Sertraline 25 MG TAB PO SCH (10:22)
[2023-03-15] MEDS: Clopidogrel Bisulfate 75 MG TAB PO SCH (10:22)
[2023-03-15] MEDS: Rosuvastatin 5 MG TAB PO SCH (10:22)
[2023-03-15] MEDS: Isosorbide Mononitrate 30 MG ER.TAB PO SCH (10:22)
[2023-03-15 13:50] LABS: ALT (SGPT) 17 U/L (8-55); AST (SGOT) 15 U/L (5-34); Alkaline Phosphatase 79 U/L (40-110); Anion Gap 14 mmol/L (10-20); BUN (Urea Nitrogen) 38 mg/dL (8.4-25.7); Bilirubin, Total 0.4 mg/dL (0.2-1.2); Calc. Creatinine Clearance 32 mL/min (70-130); Calcium 10.1 mg/dL (7.8-10.44); Carbon Dioxide 22 mmol/L (23-31); Chloride 107 mmol/L (98-107); Estimated GFR 40; Globulin 2.6 g/dL (2.4-3.5); Glucose 91 mg/dL (83-110); Potassium 4.5 mmol/L (3.5-5.1); Protein, Total 6.6 g/dL (5.8-8.1); Sodium 138 mmol/L (136-145)
[2023-03-15] MEDS: Folic Acid 1 MG TAB PO SCH (20:09)
[2023-03-15] MEDS: Cyanocobalamin (Vitamin B-12) 1,000 MCG TAB PO SCH (20:09)
[2023-03-15] MEDS: Multivit, Therapeutic 1 TAB PO SCH (20:09)
[2023-03-16 04:39] LABS: #Eosinphils 0.2 thou/uL (0.0-0.7); #Monocytes 0.6 thou/uL (0.11-0.59); #Neutrophils 5.7 thou/uL (1.40-6.50); %Basophils 0.4 % (0.0-1.0); %Eosinophils 1.8 % (0.0-10.0); %Lymphocytes 21.7 % (21.0-51.0); %Monocytes 7.3 % (0.0-10.0); %Neutrophils 68.6 % (42.0-75.0); Hematocrit 33.4 % (42.0-52.0); Hemoglobin 10.9 g/dL (14.0-18.0); Mean Corpuscular HGB CONC 32.6 g/dL (32.0-36.0); Mean Corpuscular Hemoglobin 31.7 pg (27.0-31.0); Mean Corpuscular Volume 97.1 fl (78.0-98.0); Mean Platelet Volume 9.7 fL (7.4-10.4); Platelet Count 235 10x3/uL (130-400); RBC Distribution Width 12.3 % (11.5-14.5); Red Blood Cell (RBC) Count 3.44 mill/uL (4.70-6.10); White Blood Cell (WBC) Count 8.3 10x3/uL (4.8-10.8)
[2023-03-16 05:08] LABS: ALT (SGPT) 15 U/L (8-55); AST (SGOT) 13 U/L (5-34); Albumin 3.5 g/dL (3.4-4.8); Alkaline Phosphatase 69 U/L (40-110); Anion Gap 13 mmol/L (10-20); BUN (Urea Nitrogen) 46 mg/dL (8.4-25.7); Bilirubin, Total 0.5 mg/dL (0.2-1.2); Calc. Creatinine Clearance 28 mL/min (70-130); Calcium 9.4 mg/dL (7.8-10.44); Carbon Dioxide 20 mmol/L (23-31); Chloride 109 mmol/L (98-107); Estimated GFR 33; Globulin 2.4 g/dL (2.4-3.5); Glucose 147 mg/dL (83-110); Potassium 4.7 mmol/L (3.5-5.1); Protein, Total 5.9 g/dL (5.8-8.1); Sodium 137 mmol/L (136-145)
[2023-03-16] MEDS: LevoFLOXacin 500 MG TAB PO SCH (05:55)
[2023-03-16] MEDS: Levothyroxine Sodium 50 MCG TAB PO SCH (05:55)
[2023-03-16] MEDS ORDERED: Lidocaine 1% (PF) 30 ML VIAL ONE (06:17)
[2023-03-16] MEDS ORDERED: Heparin 10,000 UNITS/ 10 ML VIAL ONE (06:17)
[2023-03-16] MEDS ORDERED: Nitroglycerin 50 MG/250 ML BOT 0 ML ONE (06:18)
[2023-03-16] MEDS ORDERED: fentaNYL 50 mcg/mL 1 mL Vial ONE (07:12)
[2023-03-16] MEDS ORDERED: Midazolam HCl 2 mg/2 ml Vial ONE (07:12)
[2023-03-16] MEDS ORDERED: Sodium Chloride 0.9% 200 ML IV PRN (08:25)
[2023-03-16] MEDS ORDERED: Nitroglycerin 0.4 MG TAB (25 Tab Bottle) SL PRN (08:25)
[2023-03-16] MEDS ORDERED: Iopamidol 370 76% 100 ML VIAL ONE (09:27)
[2023-03-16] MEDS: Aspirin Chewable 81 MG TAB PO SCH (09:41)
[2023-03-16] MEDS: Rosuvastatin 5 MG TAB PO SCH (09:41)
[2023-03-16] MEDS: Tamsulosin HCl 0.4 MG CAP PO SCH (09:41)
[2023-03-16] MEDS: Amlodipine 5 MG TAB PO SCH ×2 (09:41→20:39)
[2023-03-16] MEDS: Ascorbic Acid 500 mg Chewable Tablet PO SCH (09:41)
[2023-03-16] MEDS: Ezetimibe 10 MG TAB PO SCH (09:41)
[2023-03-16] MEDS: Isosorbide Mononitrate 30 MG ER.TAB PO SCH (09:42)
[2023-03-16] MEDS: Sertraline 25 MG TAB PO SCH (09:42)
[2023-03-16] MEDS: Clopidogrel Bisulfate 75 MG TAB PO SCH (09:42)
[2023-03-16] MEDS: Lisinopril 20 MG TAB PO SCH ×2 (09:42→20:39)
[2023-03-16] MEDS: Sodium Chloride 0.9% 1,000 ML IV SCH ×2 (09:43→16:32)
[2023-03-16] MEDS: Multivit, Therapeutic 1 TAB PO SCH (20:39)
[2023-03-16] MEDS: Cyanocobalamin (Vitamin B-12) 1,000 MCG TAB PO SCH (20:39)
[2023-03-16] MEDS: Folic Acid 1 MG TAB PO SCH (20:39)
[2023-03-17 05:10] LABS: #Eosinphils 0.2 thou/uL (0.0-0.7); #Monocytes 0.4 thou/uL (0.11-0.59); #Neutrophils 4.6 thou/uL (1.40-6.50); %Basophils 0.4 % (0.0-1.0); %Eosinophils 2.5 % (0.0-10.0); %Lymphocytes 22.1 % (21.0-51.0); %Monocytes 6.3 % (0.0-10.0); %Neutrophils 68.6 % (42.0-75.0); Hematocrit 32.5 % (42.0-52.0); Hemoglobin 10.8 g/dL (14.0-18.0); Mean Corpuscular HGB CONC 33.2 g/dL (32.0-36.0); Mean Corpuscular Hemoglobin 31.7 pg (27.0-31.0); Mean Corpuscular Volume 95.3 fl (78.0-98.0); Mean Platelet Volume 9.5 fL (7.4-10.4); Platelet Count 229 10x3/uL (130-400); RBC Distribution Width 12.3 % (11.5-14.5); Red Blood Cell (RBC) Count 3.41 mill/uL (4.70-6.10); White Blood Cell (WBC) Count 6.8 10x3/uL (4.8-10.8)
[2023-03-17 05:34] LABS: Anion Gap 11 mmol/L (10-20); BUN (Urea Nitrogen) 39 mg/dL (8.4-25.7); Calc. Creatinine Clearance 35 mL/min (70-130); Calcium 9.3 mg/dL (7.8-10.44); Carbon Dioxide 21 mmol/L (23-31); Chloride 113 mmol/L (98-107); Estimated GFR 44; Glucose 131 mg/dL (83-110); Potassium 4.4 mmol/L (3.5-5.1); Sodium 141 mmol/L (136-145)
[2023-03-17] MEDS: Levothyroxine Sodium 50 MCG TAB PO SCH (05:57)
[2023-03-17 07:53] VITALS: BP 156/72; TEMP 97.8
[2023-03-17] MEDS: Aspirin Chewable 81 MG TAB PO SCH (08:33)
[2023-03-17] MEDS: Amlodipine 5 MG TAB PO SCH (08:34)
[2023-03-17] MEDS: Isosorbide Mononitrate 30 MG ER.TAB PO SCH (08:34)
[2023-03-17] MEDS: Rosuvastatin 5 MG TAB PO SCH (08:34)
[2023-03-17] MEDS: Tamsulosin HCl 0.4 MG CAP PO SCH (08:34)
[2023-03-17] MEDS: Sertraline 25 MG TAB PO SCH (08:34)
[2023-03-17] MEDS: Ezetimibe 10 MG TAB PO SCH (08:34)
[2023-03-17] MEDS: Clopidogrel Bisulfate 75 MG TAB PO SCH (08:35)
[2023-03-17] MEDS: Ascorbic Acid 500 mg Chewable Tablet PO SCH (08:35)
[2023-03-17] MEDS: Lisinopril 20 MG TAB PO SCH (08:36)
[2023-03-18] MEDS ORDERED: LevoFLOXacin 500 MG TAB PO SCH (06:00)
[2023-03-18] MEDS ORDERED: Lisinopril 20 MG TAB PO SCH (09:00)
== END 2023-03-17 10:41 | disposition home or self-care (01) | DRG 287 ==
LOC: ERS 10:52 → 2NO 14:30 → OBSVTOIN 03-15 10:27
PROVIDERS: ADMIT Internal Medicine; ATTEND Internal Medicine Critical Care Medicine
PROC: 4A023N7 Measurement of Cardiac Sampling and Pressure, Left Heart, Percutaneous Approach (ICD-10-PCS; principal; 2023-03-16)
PROC: B2111ZZ Fluoroscopy of Multiple Coronary Arteries using Low Osmolar Contrast (ICD-10-PCS; 2023-03-16)
PROC: B2131ZZ Fluoroscopy of Multiple Coronary Artery Bypass Grafts using Low Osmolar Contrast (ICD-10-PCS; 2023-03-16)
PROC: B2181ZZ Fluoroscopy of Left Internal Mammary Bypass Graft using Low Osmolar Contrast (ICD-10-PCS; 2023-03-16)
DX: I25.119 Atherosclerotic heart disease of native coronary artery with unspecified angina pectoris (principal); E78.00 Pure hypercholesterolemia, unspecified; E03.9 Hypothyroidism, unspecified; N40.0 Benign prostatic hyperplasia without lower urinary tract symptoms; N18.9 Chronic kidney disease, unspecified; E11.22 Type 2 diabetes mellitus with diabetic chronic kidney disease; N18.30 Chronic kidney disease, stage 3 unspecified; I12.9 Hypertensive chronic kidney disease with stage 1 through stage 4 chronic kidney disease, or unspecified chronic kidney disease; C43.39 Malignant melanoma of other parts of face; Z98.890 Other specified postprocedural states; Z79.82 Long term (current) use of aspirin; Z79.899 Other long term (current) drug therapy; Z79.84 Long term (current) use of oral hypoglycemic drugs; Z95.1 Presence of aortocoronary bypass graft; Z79.890 Hormone replacement therapy; Z82.49 Family history of ischemic heart disease and other diseases of the circulatory system
CPT/HCPCS: 36415; 36416; 71045; 80048; 80053; 81001; 83690; 83735; 83880; 84439; 84443; 84484; 85025; 85379; 93005; 93306; 93459; 96372; 96374; 96375; 99152; 99153; C1894; G0378; J1644; J1650; J2001; J2250; J2270; J2405; J3010; J7050; Q9967